=== PATIENT | female | born 1980 | race American Indian/Alaskan Native ===

== ENCOUNTER 2019-02-20 18:26 | Observation (INO) | payer OTHER ==
--- NOTE | 2019-02-20 18:45 | Emergency Department Report ---
Blank Doc - Documentation Documentation: pt presents to ED cc of left shoulder pain x 2 days, she states radiation to ne ck and sometimes to arm denies any trauma or injuries labs,cxr, ekg ACC eval
[2019-02-20 19:05] LABS: Basophils # (Auto) 0.1 K/mm3 (0.0-0.1); Basophils % (Auto) 0.8 % (0.0-1.8); Eosinophils # (Auto) 0.1 K/mm3 (0.0-0.4); Eosinophils % (Auto) 1.2 % (0.0-4.3); Hematocrit 34.6 % (30.3-42.9); Hemoglobin 11.3 gm/dl (10.1-14.3); Lymphocytes # (Auto) 2.9 K/mm3 (1.2-5.4); Lymphocytes % (Auto) 33.2 % (13.4-35.0); Mean Corpuscular HGB Conc 33 % (30-34); Mean Corpuscular Volume 78 fl (79-97); Monocytes # (Auto) 0.5 K/mm3 (0.0-0.8); Monocytes % (Auto) 5.8 % (0.0-7.3); Platelet Count 229 K/mm3 (140-440); Red Blood Count 4.45 M/mm3 (3.65-5.03); Red Cell Distribution Width 15.2 % (13.2-15.2)
[2019-02-20 19:24] LABS: BUN/Creatinine Ratio 10; Blood Urea Nitrogen 9 mg/dL (7-17); Calcium 8.9 mg/dL (8.4-10.2); Hemolysis Index 3
--- NOTE | 2019-02-20 19:25 | XRay Report ---
PROCEDURE: XR CHEST ROUTINE 2V TECHNIQUE: PA and lateral chest radiographs were obtained. HISTORY: Chest Pain COMPARISONS: None. FINDINGS: Heart: Normal. Mediastinum/Vessels: Normal. Lungs/Pleural space: Normal. Bony thorax: No acute osseous abnormality. IMPRESSION: No acute cardiopulmonary process seen.. This document is electronically signed by Isaura Kate MD., February 20 2019 07:23:45 PM ET
--- NOTE | 2019-02-20 21:02 | Emergency Department Report ---
HPI - General Chief Complaint: Chest Pain Time Seen by Provider: 02/20/19 18:41 - HPI HPI: Room 7 The patient is a 38-year-old female presenting with chief complaint chest pain. Patient states 2 nights ago she developed left upper extremity pain radiating to the back or neck which was intermittent. Today the patient states she developed intermittent dull left-sided chest pain. Patient denies shortness of breath, nausea/vomiting or diaphoresis with her pain. Patient currently gets her pain score of 6/10. Patient states she believes had a stress test about 2 years ago but states she's never had a cardiac catheterization Location: Chest, see above Duration: [See above] Quality: [See above] Severity: 10 Modifying factors: [see above] Context: [see above] Mode of transportation: [not driving] ED Past Medical Hx - Past Medical History Previous Medical History?: Yes Hx GERD: Yes Additional medical history: Hiatal hernia - Surgical History Past Surgical History?: No - Family History Family history: no significant - Social History Smoking Status: Never Smoker Substance Use Type: None (denies illicit drug use) ED Review of Systems ROS: Stated complaint: L SHOULDER PAIN Other details as noted in HPI Constitutional: denies: diaphoresis Eyes: denies: eye pain ENT: denies: throat pain Respiratory: no symptoms reported Cardiovascular: chest pain Endocrine: no symptoms reported Gastrointestinal: denies: nausea, vomiting Genitourinary: denies: dysuria Musculoskeletal: denies: back pain Neurological: denies: headache Physical Exam - Physical Exam Vital Signs: Vital Signs 02/20/19 18:42 Temperature 98 F Pulse Rate 81 Respiratory 18 Rate Blood Pressure 152/80 O2 Sat by Pulse 98 Oximetry Physical Exam: GENERAL: The patient is well-developed well-nourished female lying on stretcher not appearing to be in acute distress. [] HEENT: Normocephalic. Atraumatic. Extraocular motions are intact. Patient has moist mucous membranes. NECK: Supple. Trachea midline CHEST/LUNGS: Clear to auscultation. There is no respiratory distress noted. HEART/CARDIOVASCULAR: Regular. There is no tachycardia. There is no gallop rub or murmur. 2+ radial pulses bilaterally ABDOMEN: Abdomen is soft, nontender. Patient has normal bowel sounds. There is no abdominal distention. SKIN: There is no rash. There is no edema. There is no diaphoresis. NEURO: The patient is awake, alert, and oriented. The patient is cooperative. The patient has normal speech MUSCULOSKELETAL:There is no evidence of acute injury. ED Course Vital Signs 02/20/19 18:42 Temperature 98 F Pulse Rate 81 Respiratory 18 Rate Blood Pressure 152/80 O2 Sat by Pulse 98 Oximetry ED Medical Decision Making - Lab Data Result diagrams: 02/20/19 18:49 02/20/19 18:49 Laboratory Tests 02/20/19 02/20/19 02/20/19 18:49 18:49 21:16 WBC 8.6 RBC 4.45 Hgb 11.3 Hct 34.6 MCV 78 L MCH 25 L MCHC 33 RDW 15.2 Plt Count 229 Lymph % (Auto) 33.2 [place] % (Auto) 5.8 Eos % (Auto) 1.2 Baso % (Auto) 0.8 Lymph # 2.9 [place] # 0.5 Eos # 0.1 Baso # 0.1 Seg Neutrophils % 59.0 Seg Neutrophils # 5.1 D-Dimer 217.38 Sodium 140 Potassium 4.0 Chloride 101.8 Carbon Dioxide 28 Anion Gap 14 BUN 9 Creatinine 0.9 Estimated GFR > 60 BUN/Creatinine Ratio 10 Glucose 97 Calcium 8.9 Troponin T < 0.010 - EKG Data -: EKG Interpreted by Me EKG shows normal: sinus rhythm Rate: normal - EKG Data When compared to previous EKG there are: previous EKG unavailable Interpretation: nonspecific ST-T wave johanna (T-wave inversion in lead 3, flattened T waves in lead aVF) - Radiology Data Radiology results: report reviewed (chest x-ray), image reviewed (chest x-ray) interpreted by me: Chest x-ray-no focal infiltrates, no pneumothorax [facility] [address] [place] [address] XRay Report Signed Patient: GLORIA PEACE MR#: [id number] : 1980 Acct:[id number] Age/Sex: 38 / F ADM Date: 02/20/19 Loc: ED Attending Dr: Ordering Physician: ULYSSES SINGH Date of Service: 02/20/19 Procedure(s): XR chest routine 2V Accession Number(s): [id number] cc: ULYSSES SINGH Fluoro Time In Minutes: PROCEDURE: XR CHEST ROUTINE 2V TECHNIQUE: PA and lateral chest radiographs were obtained. HISTORY: Chest Pain COMPARISONS: None. FINDINGS: Heart: Normal. Mediastinum/Vessels: Normal. Lungs/Pleural space: N ormal. Bony thorax: No acute osseous abnormality. IMPRESSION: No acute cardiopulmonary process seen.. This document is electronically signed by Isaura Kate MD., February 20 2019 07:23:45 PM ET Transcribed By: [facility] Dictated By: ISAURA KATE MD Electronically Authenticated By: ISAURA KATE MD Signed Date/Time: 02/20/191924 DD/ 43 TD/TT: 02/20/190 - Differential Diagnosis ACS, PE, pericarditis Critical care attestation.: If time is entered above; I have spent that time in minutes in the direct care of this critically ill patient, excluding procedure time. ED Disposition Clinical Impression: Chest pain Disposition: DC-09 OP ADMIT IP TO THIS HOSP Is pt being admited?: Yes Does the pt Need Aspirin: Yes Condition: Fair Instructions: Chest Pain (ED) Referrals: RAJ LEZAMASEAGRAVES MD KATI [Primary Care Provider] - 3-5 Days Time of Disposition: 21:56 (hospitalist paged (Dr Reilly))
[2019-02-20] MEDS ORDERED: ASPIRIN PO ONE (21:03)
[2019-02-20] MEDS ORDERED: ZOFRAN IV PRN (22:39)
[2019-02-20] MEDS ORDERED: SODIUM CHLORIDE FLUSH SYRINGE 10 ML IV PRN (22:39)
[2019-02-20] MEDS ORDERED: TORADOL IV PRN (22:41)
[2019-02-20] MEDS ORDERED: APRESOLINE IV PRN (23:28)
[2019-02-20] MEDS ORDERED: LABETALOL 200 MG PO SCH (23:30)
--- NOTE | 2019-02-20 23:42 | History and Physical Report ---
History of Present Illness Date of examination: 02/20/19 Date of admission: 02/20/19 22:39 Chief complaint: Left shoulder pain History of present illness: Patient is a 38-year-old -[place] female with history of hypertension and GERD who presented to the ED on account of 2 days history of left shoulder pain. Patient stated that about 2 days ago, her daughter sneaked into her room and dropped something, which made her to jump out of bed suddenly. Thereafter she started experiencing left shoulder pain. Today, she she had 2 episodes of chest pressure on the left side of her chest. She denies chest pain, shortness of breath, diaphoresis, palpitation, cough, fever, chills, leg swelling, orthopnea or PND. No headaches, nausea, vomiting, lightheadedness, syncope or loss of consciousness Past History Past Medical History: GERD, hypertension, other (obesity, hiatal hernia) Past Surgical History: No surgical history Social history: no significant social history (she denies tobacco, alcohol or illicit drug use) Family history: other (significant for hypertension in the dad and diabetes mellitus in the grandmother) Medications and Allergies Allergies Allergy/AdvReac Type Severity Reaction Status Date / Time acetaminophen [From Lortab] Allergy Unknown Verified 02/20/19 18:31 amoxicillin Allergy Hives Verified 02/20/19 18:30 hydrocodone [From Lortab] Allergy Unknown Verified 02/20/19 18:31 prednisone Allergy Anaphylaxis Verified 02/20/19 18:30 Home Medications Medication Instructions Recorded Confirmed Last Taken Type Labetalol 200mg TAB 200 mg PO BID 02/20/19 02/20/19 02/20/19 History Active Meds: Active Medications Amlodipine Besylate (Norvasc) 5 mg PO QDAY EVITA Aspirin (Baby Aspirin) 81 mg PO QDAY EVITA Famotidine (Pepcid) 10 mg PO BID [facility] Hydralazine HCl (Apresoline) 10 mg IV Q4HR PRN PRN Reason: Blood Pressure Ketorolac Tromethamine (Toradol) 15 mg IV Q6H PRN PRN Reason: Pain, Moderate (4-6) Stop: 02/25/19 22:40 Labetalol HCl (Normodyne) 200 mg PO BID EVITA Ondansetron HCl (Zofran) 4 mg IV Q8H PRN PRN Reason: Nausea And Vomiting Sodium Chloride (Sodium Chloride Flush Syringe 10 Ml) 10 ml IV BID EVITA Sodium Chloride (Sodium Chloride Flush Syringe 10 Ml) 10 ml IV PRN PRN PRN Reason: LINE FLUSH Review of Systems All systems: negative (except as documented in the HPI, 14 point system reviewed were negative) Exam - Constitutional Vitals: Temp Pulse Resp BP Pulse Ox 98 F 67 19 169/96 100 02/20/19 18:42 02/20/19 22:00 02/20/19 22:00 02/20/19 22:00 02/20/19 22:00 General appearance: Present: no acute distress, obese - EENT Eyes: Present: PERRL, EOM intact ENT: hearing intact, clear oral mucosa - Neck Neck: Present: supple, normal ROM - Respiratory Respiratory effort: normal Respiratory: bilateral: CTA - Cardiovascular Rhythm: regular Heart Sounds: Present: S1 & S2 - Extremities Extremities: No edema Peripheral Pulses: within normal limits - Abdominal General gastrointestinal: Present: soft, non-tender, normal bowel sounds Female genitourinary: Present: deferred - Integumentary Integumentary: Present: clear, warm, dry - Musculoskeletal Musculoskeletal: strength equal bilaterally - Psychiatric Psychiatric: appropriate mood/affect, intact judgment & insight - Neurologic Neurologic: CNII-XII intact Results - Labs CBC & Chem 7: 02/20/19 18:49 02/20/19 18:49 Labs: Laboratory Last Values WBC 8.6 K/mm3 (4.5-11.0) 02/20/19 18:49 RBC 4.45 M/mm3 (3.65-5.03) 02/20/19 18:49 Hgb 11.3 gm/dl (10.1-14.3) 02/20/19 18:49 Hct 34.6 % (30.3-42.9) 02/20/19 18:49 MCV 78 fl (79-97) L 02/20/19 18:49 MCH 25 pg (28-32) L 02/20/19 18:49 MCHC 33 % (30-34) 02/20/19 18:49 RDW 15.2 % (13.2-15.2) 02/20/19 18:49 Plt Count 229 K/mm3 (140-440) 02/20/19 18:49 Lymph % (Auto) 33.2 % (13.4-35.0) 02/20/19 18:49 [place] % (Auto) 5.8 % (0.0-7.3) 02/20/19 18:49 Eos % (Auto) 1.2 % (0.0-4.3) 02/20/19 18:49 Baso % (Auto) 0.8 % (0.0-1.8) 02/20/19 18:49 Lymph # 2.9 K/mm3 (1.2-5.4) 02/20/19 18:49 [place] # 0.5 K/mm3 (0.0-0.8) 02/20/19 18:49 Eos # 0.1 K/mm3 (0.0-0.4) 02/20/19 18:49 Baso # 0.1 K/mm3 (0.0-0.1) 02/20/19 18:49 Seg Neutrophils % 59.0 % (40.0-70.0) 02/20/19 18:49 Seg Neutrophils # 5.1 K/mm3 (1.8-7.7) 02/20/19 18:49 217.38 ng/mlDDU (0-234) 02/20/19 21:16 Sodium 140 mmol/L (137-145) 02/20/19 18:49 Potassium 4.0 mmol/L (3.6-5.0) 02/20/19 18:49 Chloride 101.8 mmol/L (98-107) 02/20/19 18:49 Carbon Dioxide 28 mmol/L (22-30) 02/20/19 18:49 14 mmol/L 02/20/19 18:49 BUN 9 mg/dL (7-17) 02/20/19 18:49 0.9 mg/dL (0.7-1.2) 02/20/19 18:49 Estimated GFR > 60 ml/min 02/20/19 18:49 10 % 02/20/19 18:49 Glucose 97 mg/dL (65-100) 02/20/19 18:49 Calcium 8.9 mg/dL (8.4-10.2) 02/20/19 18:49 < 0.010 ng/mL (0.00-0.029) 02/20/19 22:47 Assessment and Plan Assessment and plan: Left shoulder pain -Left shoulder x-ray for further evaluation -On PRN analgesics for pain control Left-sided chest pressure -Serial troponin level monitoring -Further evaluation with stress test Hypertensive urgency -On antihypertensives, adjust as needed GERD -On famotidine Obesity with BMI of 38.1 -Lifestyle modification recommended DVT prophylaxis with SCD Disposition: Patient will be placed in observation status pending further evaluation and treatment Time spent: 35 minutes
[2019-02-21] MEDS: PEPCID PO SCH ×3 (00:01→21:50)
[2019-02-21] MEDS: NORMODYNE PO SCH ×3 (00:01→21:50)
[2019-02-21] MEDS: NORVASC PO SCH ×3 (00:01→12:28)
[2019-02-21] MEDS ORDERED: NITROSTAT SL PRN (01:47)
--- NOTE | 2019-02-21 01:51 | XRay Report ---
PROCEDURE: XR SHOULDER 2+V LT TECHNIQUE: Left shoulder radiographs, internal and external rotation, Y view views. HISTORY: LT shoulder pain COMPARISONS: None . FINDINGS: Fracture (s) and/or Dislocation(s): None . Joint space(s): Normal . Soft tissues: Normal . Bone mineralization: Normal . Foreign bodies: None . IMPRESSION: Normal Examination . This document is electronically signed by Deanna Sanchez DO., February 21 2019 01:49:17 AM ET
[2019-02-21 09:24] LABS: Chol/HDL Ratio 3.97 %
[2019-02-21] MEDS: BABY ASPIRIN PO SCH (12:27)
[2019-02-21] MEDS: IBUPROFEN PO PRN (12:27)
[2019-02-21] MEDS: SODIUM CHLORIDE FLUSH SYRINGE 10 ML IV SCH ×2 (12:28→21:50)
--- NOTE | 2019-02-21 13:21 | Consultation ---
History of Present Illness Consult date: 02/21/19 Consult reason: chest pain History of present illness: 38-year-old woman with history of hypertension on labetalol, no prior cardiac history. Cardiology consultation was requested for chest pain, but the patient presents with actual complaint of left shoulder and left arm pain. This pain began 3 days ago after she sustained an injury with a backward fall on her bed while at home. Since then, he has been pain with lifting the shoulder and other movements of the thorax. On my examination, there is reproducible pain on shoulder abduction, and palpation over the upper back. The patient has no chest pain, no shortness of breath, no symptoms of palpitation, lower extremity edema or syncope. EKG is in normal sinus rhythm, e ssentially normal ECG. Cardiac enzymes are normal. Past History Past Medical History: GERD, hypertension, other (obesity, hiatal hernia) Past Surgical History: No surgical history Social history: no significant social history (she denies tobacco, alcohol or illicit drug use) Family history: other (significant for hypertension in the dad and diabetes mellitus in the grandmother) Medications and Allergies Allergies Allergy/AdvReac Type Severity Reaction Status Date / Time acetaminophen [From Lortab] Allergy Unknown Verified 02/20/19 18:31 amoxicillin Allergy Hives Verified 02/20/19 18:30 hydrocodone [From Lortab] Allergy Unknown Verified 02/20/19 18:31 prednisone Allergy Anaphylaxis Verified 02/20/19 18:30 HYDRALAZINE Allergy Severe Dizziness Uncoded 02/21/19 00:20 NAPROSYN Allergy Severe CP FAST Uncoded 02/21/19 00:18 HEART RATE. Home Medications Medication Instructions Recorded Confirmed Last Taken Type Labetalol 200mg TAB 200 mg PO BID 02/20/19 02/20/19 02/20/19 History Active Meds: Active Medications Amlodipine Besylate (Norvasc) 5 mg PO QDAY [facility] Last Admin: 02/21/19 12:28 Dose: Not Given Documented by: Aspirin (Baby Aspirin) 81 mg PO QDAY [facility] Last Admin: 02/21/19 12:27 Dose: 81 mg Documented by: Famotidine (Pepcid) 10 mg PO BID [facility] Last Admin: 02/21/19 12:28 Dose: Not Given Documented by: Ibuprofen (Ibuprofen) 600 mg PO Q6H PRN PRN Reason: Pain, Mild (1-3) Last Admin: 02/21/19 12:27 Dose: 600 mg Documented by: Ketorolac Tromethamine (Toradol) 15 mg IV Q6H PRN PRN Reason: Pain, Moderate (4-6) Stop: 02/25/19 22:40 Labetalol HCl (Normodyne) 200 mg PO BID [facility] Last Admin: 02/21/19 12:27 Dose: 200 mg Documented by: Methylprednisolone (Medrol) 4 mg PO TID [facility] Nitroglycerin (Nitrostat) 0.4 mg SL .Q5MIN PRN PRN Reason: Chest Pain Ondansetron HCl (Zofran) 4 mg IV Q8H PRN PRN Reason: Nausea And Vomiting Sodium Chloride (Sodium Chloride Flush Syringe 10 Ml) 10 ml IV BID [facility] Last Admin: 02/21/19 12:28 Dose: 10 ml Documented by: Sodium Chloride (Sodium Chloride Flush Syringe 10 Ml) 10 ml IV PRN PRN PRN Reason: LINE FLUSH Review of Systems Cardiovascular: no chest pain, no orthopnea, no palpitations, no rapid/irregular heart beat, no edema, no syncope, no lightheadedness, no shortness of breath Musculoskeletal: neck pain, other (left arm pain) Physical Examination Vital Signs Temp Pulse Resp BP Pulse Ox 98 F 81 18 152/80 98 02/20/19 18:42 02/20/19 18:42 02/20/19 18:42 02/20/19 18:42 02/20/19 18:42 General appearance: no acute distress HEENT: Positive: PERRL Neck: Positive: neck supple Cardiac: Positive: Reg Rate and Rhythm Lungs: Positive: clear to auscultation Neuro: Positive: Grossly Intact Abdomen: Positive: Soft Female genitourinary: deferred Skin: Positive: Clear Extremities: Absent: edema Results 02/20/19 18:49 02/20/19 18:49 Lipids 02/21/19 Range/Units 07:12 Triglycerides 120 (2-149) mg/dL Cholesterol 187 (50-199) mg/dL HDL Cholesterol 47 (40-59) mg/dL Cholesterol/HDL Ratio 3.97 % CBC 02/20/19 Range/Units 18:49 WBC 8.6 (4.5-11.0) K/mm3 RBC 4.45 (3.65-5.03) M/mm3 Hgb 11.3 (10.1-14.3) gm/dl Hct 34.6 (30.3-42.9) % Plt Count 229 (140-440) K/mm3 Lymph # 2.9 (1.2-5.4) K/mm3 [place] # 0.5 (0.0-0.8) K/mm3 Eos # 0.1 (0.0-0.4) K/mm3 Baso # 0.1 (0.0-0.1) K/mm3 Comprehensive Metabolic Panel 02/20/19 Range/Units 18:49 Sodium 140 (137-145) mmol/L Potassium 4.0 (3.6-5.0) mmol/L Chloride 101.8 (98-107) mmol/L Carbon Dioxide 28 (22-30) mmol/L BUN 9 (7-17) mg/dL Creatinine 0.9 (0.7-1.2) mg/dL Glucose 97 (65-100) mg/dL Calcium 8.9 (8.4-10.2) mg/dL EKG interpretations - Telemetry EKG Rhythm: Sinus Rhythm Assessment and Plan - Patient Problems (1) Musculoskeletal pain of left upper extremity Current Visit: Yes Status: Acute Plan to address problem: Patient has musculoskeletal pain resulting from injury at home 3 days ago. ECGs and cardiac enzymes are normal. No further cardiac workup is indicated for musculoskeletal left arm and left shoulder pain. I will cancel further stress testing at this time. Recommend referral to orthopedic surgery for further evaluation of ongoing musculoskeletal pain.
[2019-02-21] MEDS: MEDROL PO SCH ×2 (15:00→21:49)
--- NOTE | 2019-02-21 21:19 | Progress Note ---
Assessment and Plan Assessment and plan: Left shoulder pain -Left shoulder x-ray for further evaluation -On PRN analgesics for pain control, added medrol, ortho consult Left-sided chest pressure -Serial troponin level monitoring -Further evaluation with stress test Hypertensive urgency -On antihypertensives, adjust as needed GERD -On famotidine Obesity with BMI of 38.1 -Lifestyle modification recommended DVT prophylaxis with SCD History Interval history: Continues to complain of left shoulder pain Review of systems Constitutional: No fevers, no malaise, no joint pains CVS: No chest pain, no orthopnea, no dyspnea on exertion, no pedal edema GI: No abdominal pain, no diarrhea, no vomiting, no constipation Respiratory: no wheezing, no coughing Hospitalist Physical - Physical exam Narrative exam: General.: Appears well, no distress, nontoxic HEENT: Moist mucous membranes, extraocular muscles intact, no lymphadenopathy Neck: supple Cardiac: S1-S2 heard Lungs: clear to auscultation bilaterally Abdomen: soft , nontender, nondistended, bowel sounds positive Extremities: no edema clubbing or cyanosis Tenderness to left shoulder, decreased range of motion Skin: no rash or lesions Neurologic: no gross focal deficits Psych: calm, and cooperative - Constitutional Vitals: Temp Pulse Resp BP Pulse Ox 98.2 F 86 18 147/81 100 02/21/19 19:32 02/21/19 20:08 02/21/19 19:32 02/21/19 19:32 02/21/19 19:32 General appearance: Present: no acute distress Results - Labs CBC & Chem 7: 02/20/19 18:49 02/20/19 18:49 Labs: Laboratory Last Values WBC 8.6 K/mm3 (4.5-11.0) 02/20/19 18:49 RBC 4.45 M/mm3 (3.65-5.03) 02/20/19 18:49 Hgb 11.3 gm/dl (10.1-14.3) 02/20/19 18:49 Hct 34.6 % (30.3-42.9) 02/20/19 18:49 MCV 78 fl (79-97) L 02/20/19 18:49 MCH 25 pg (28-32) L 02/20/19 18:49 MCHC 33 % (30-34) 02/20/19 18:49 RDW 15.2 % (13.2-15.2) 02/20/19 18:49 Plt Count 229 K/mm3 (140-440) 02/20/19 18:49 Lymph % (Auto) 33.2 % (13.4-35.0) 02/20/19 18:49 [place] % (Auto) 5.8 % (0.0-7.3) 02/20/19 18:49 Eos % (Auto) 1.2 % (0.0-4.3) 02/20/19 18:49 Baso % (Auto) 0.8 % (0.0-1.8) 02/20/19 18:49 Lymph # 2.9 K/mm3 (1.2-5.4) 02/20/19 18:49 [place] # 0.5 K/mm3 (0.0-0.8) 02/20/19 18:49 Eos # 0.1 K/mm3 (0.0-0.4) 02/20/19 18:49 Baso # 0.1 K/mm3 (0.0-0.1) 02/20/19 18:49 Seg Neutrophils % 59.0 % (40.0-70.0) 02/20/19 18:49 Seg Neutrophils # 5.1 K/mm3 (1.8-7.7) 02/20/19 18:49 217.38 ng/mlDDU (0-234) 02/20/19 21:16 Sodium 140 mmol/L (137-145) 02/20/19 18:49 Potassium 4.0 mmol/L (3.6-5.0) 02/20/19 18:49 Chloride 101.8 mmol/L (98-107) 02/20/19 18:49 Carbon Dioxide 28 mmol/L (22-30) 02/20/19 18:49 14 mmol/L 02/20/19 18:49 BUN 9 mg/dL (7-17) 02/20/19 18:49 0.9 mg/dL (0.7-1.2) 02/20/19 18:49 Estimated GFR > 60 ml/min 02/20/19 18:49 10 % 02/20/19 18:49 Glucose 97 mg/dL (65-100) 02/20/19 18:49 Calcium 8.9 mg/dL (8.4-10.2) 02/20/19 18:49 < 0.010 ng/mL (0.00-0.029) 02/21/19 00:35 Triglycerides 120 mg/dL (2-149) 02/21/19 07:12 Cholesterol 187 mg/dL (50-199) 02/21/19 07:12 124 mg/dL (50-130) 02/21/19 07:12 47 mg/dL (40-59) 02/21/19 07:12 3.97 % 02/21/19 07:12 Active Medications - Current Medications Current Medications: Generic Name Dose Route Start Last Admin Trade Name Freq PRN Reason Stop Dose Admin Amlodipine Besylate 5 mg 02/20/19 23:29 02/21/19 12:28 Norvasc PO Not Given QDAY [facility] Aspirin 81 mg 02/21/19 10:00 02/21/19 12:27 Baby Aspirin PO 81 mg QDAY [facility]ITA Administration Famotidine 10 mg 02/20/19 23:00 02/21/19 12:28 Pepcid PO Not Given BID [facility] Ibuprofen 600 mg 02/21/19 11:41 02/21/19 12:27 Ibuprofen PO 600 mg Q6H PRN Administration Pain, Mild (1-3) Ketorolac Tromethamine 15 mg 02/20/19 22:41 Toradol IV 02/25/19 22:40 Q6H PRN Pain, Moderate (4-6) Labetalol HCl 200 mg 02/20/19 23:30 02/21/19 12:27 Normodyne PO 200 mg BID [facility]ITA Administration Methylprednisolone 4 mg 02/21/19 14:00 02/21/19 15:00 Medrol PO Not Given TID [facility] Nitroglycerin 0.4 mg 02/21/19 01:47 Nitrostat SL .Q5MIN PRN Chest Pain Ondansetron HCl 4 mg 02/20/19 22:39 Zofran IV Q8H PRN Nausea And Vomiting Sodium Chloride 10 ml 02/21/19 10:00 02/21/19 12:28 Sodium Chloride Flush Syringe 10 Ml IV 10 ml BID [facility] Administration Sodium Chloride 10 ml 02/20/19 22:39 Sodium Chloride Flush Syringe 10 Ml IV PRN PRN LINE FLUSH Nutrition/Malnutrition Assess - Dietary Evaluation Nutrition/Malnutrition Findings: Nutrition Notes Start: 02/21/19 16:04 Freq: Status: Active Protocol: Document 02/21/19 16:04 RM (Rec: 02/21/19 16:08 RM [id number]) Nutrition Notes Need for 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 Pt stated that [employer] her appetite was good and that she ate 3 meals daily. Stated that her appetite is good now. Stated that she has only had breakfast so far and only ate the toast because she did not like the eggs. Admits to recent wt gain. No temporal or orbital wasting . Burn Absent Trauma Absent Nutrition Intervention Follow-Up By: 02/24/19 Additional Comments Follow for stable intakes
[2019-02-22] MEDS: IBUPROFEN PO PRN ×2 (03:00→12:52)
[2019-02-22] MEDS: BABY ASPIRIN PO SCH (10:39)
[2019-02-22] MEDS: NORMODYNE PO SCH ×2 (10:39→21:24)
--- NOTE | 2019-02-22 12:40 | Progress Note ---
Assessment and Plan Left shoulder and left arm pain: chief complaint s/t fall Hypertension No further cardiac recommendations. We will follow intermittently. Subjective Date of service: 02/22/19 Interval history: Patient still with left shoulder pain. Objective Vital Signs Temp Pulse Resp BP Pulse Ox 02/22/19 07:35 97.8 F 18 127/76 02/22/19 04:27 98.5 F 73 18 141/64 99 02/22/19 03:00 18 02/21/19 23:35 98.4 F 81 18 149/75 99 02/21/19 20:08 86 02/21/19 19:32 98.2 F 86 18 147/81 100 02/21/19 15:42 98.0 F 81 18 130/107 98 - Physical Examination General: No Apparent Distress HEENT: Positive: PERRL Neck: Positive: neck supple Cardiac: Positive: Reg Rate and Rhythm Lungs: Positive: Decreased Breath Sounds Neuro: Positive: Grossly Intact Abdomen: Positive: Soft Extremities: Absent: edema
--- NOTE | 2019-02-22 12:58 | Consultation ---
History of Present Illness - [facility] Consult date: 02/22/19 Consult reason: joint pain History of present illness: 38-year-old female who complains of left shoulder pain for the past several weeks patient states problem began after she was startled by her daughter at home patient denies any history of fall or other trauma. Currently patient describes the pain as beginning in the neck area and radiating down the left shoulder into the left forearm and hand region. States the pain sometimes has numbness and tingling sensation about the time as a sharp stabbing pain located along the lateral border of the upper arm. Incidentally patient states she is allergic to prednisone and other medications Past History Past Medical History: GERD, hypertension, other (obesity, hiatal hernia) Past Surgical History: No surgical history Social history: no significant social history (she denies tobacco, alcohol or illicit drug use) Family history: other (significant for hypertension in the dad and diabetes mellitus in the grandmother) Medications and Allergies Allergies Allergy/AdvReac Type Severity Reaction Status Date / Time acetaminophen [From Lortab] Allergy Unknown Verified 02/20/19 18:31 amoxicillin Allergy Hives Verified 02/20/19 18:30 hydrocodone [From Lortab] Allergy Unknown Verified 02/20/19 18:31 prednisone Allergy Anaphylaxis Verified 02/20/19 18:30 HYDRALAZINE Allergy Severe Dizziness Uncoded 02/21/19 00:20 NAPROSYN Allergy Severe CP FAST Uncoded 02/21/19 00:18 HEART RATE. Home Medications Medication Instructions Recorded Confirmed Last Taken Type Labetalol 200mg TAB 200 mg PO BID 02/20/19 02/20/19 02/20/19 History Active Meds: Active Medications Amlodipine Besylate (Norvasc) 5 mg PO QDAY [facility] Last Admin: 02/21/19 12:28 Dose: Not Given Documented by: Aspirin (Baby Aspirin) 81 mg PO QDAY [facility] Last Admin: 02/22/19 10:39 Dose: 81 mg Documented by: Famotidine (Pepcid) 10 mg PO BID [facility] Last Admin: 02/21/19 21:50 Dose: 10 mg Documented by: Ibuprofen (Ibuprofen) 600 mg PO Q6H PRN PRN Reason: Pain, Mild (1-3) Last Admin: 02/22/19 12:52 Dose: 600 mg Documented by: Ketorolac Tromethamine (Toradol) 15 mg IV Q6H PRN PRN Reason: Pain, Moderate (4-6) Stop: 02/25/19 22:40 Labetalol HCl (Normodyne) 200 mg PO BID [facility] Last Admin: 02/22/19 10:39 Dose: 200 mg Documented by: Methylprednisolone (Medrol) 4 mg PO TID [facility] Last Admin: 02/21/19 21:49 Dose: Not Given Documented by: Nitroglycerin (Nitrostat) 0.4 mg SL .Q5MIN PRN PRN Reason: Chest Pain Ondansetron HCl (Zofran) 4 mg IV Q8H PRN PRN Reason: Nausea And Vomiting Sodium Chloride (Sodium Chloride Flush Syringe 10 Ml) 10 ml IV BID [facility] Last Admin: 02/21/19 21:50 Dose: 10 ml Documented by: Sodium Chloride (Sodium Chloride Flush Syringe 10 Ml) 10 ml IV PRN PRN PRN Reason: LINE FLUSH Physical Examination - Physical exam Narrative exam: At the left shoulder patient is tender at the greater tuberosity as well as the trapezius muscle posteriorly patient does have some guarding tendencies which limits effective examination at this time Eyes: PERRL ENT: Positive: clear oral mucosa Respiratory effort: normal Respiratory: bilateral: CTA Rhythm: regular Heart Sounds: Positive: S1 & S2 General gastrointestinal: Positive: soft, non-tender, non-distended, normal bowel sounds Integumentary: clear, warm, dry Neurologic: Positive: CNII-XII intact, moves all extremities, gait normal. Negative: focal deficits - Cervical Spine Neck pain: none Tenderness with palpation: none Full ROM: yes ROM: flexion: normal ROM: extension: normal ROM: rotation right: normal ROM: rotation left: normal ROM: lateral flexion right: normal ROM: lateral flexion left: normal - Lumbar Spine Back pain: none Tenderness with palpation: none Appearance: normal Full ROM: yes ROM: flexion: normal ROM: extension: normal ROM: rotation right: normal ROM: rotation left: normal ROM: lateral flexion right: normal ROM: lateral flexion left: normal Assessment and Plan Left shoulder pain suspect tendinitis or bursitis Discussed treatment options with the patient recommend Depo-Medrol injection however patient previous allergy to prednisone negate this form of treatment therefore patient was encouraged to take oral anti-inflammatory medications along with physical therapy and arm sling
--- NOTE | 2019-02-22 17:32 | Discharge Summary ---
Providers - Providers Date of Admission: 02/20/19 22:39 Attending physician: SARAH THOMPSON MD 02/21/19 10:43 Consult to Cardiology [CONS] Routine Consulting Provider: MADISON CORONEL Reason For Exam: chest pain 02/21/19 21:19 Consult to Physician [CONS] Routine Comment: Consulting Provider: BARBARA SCHULTZ Physician Instructions: Reason For Exam: left shoulder pain Hospitalization Condition: Fair Hospital course: Left shoulder pain No acute findings on x-ray, orthopedic surgery consult appreciated, outpatient orthopedic surgery follow-up, NSAIDs and pain medications Left-sided chest pressure Musculoskeletal in origin, due to left shoulder pain, no further workup indicated per cardiology Hypertensive urgency Blood pressure meds optimized GERD -On famotidine Obesity with BMI of 38.1 -Lifestyle modification recommended DVT prophylaxis with SCD Disposition: TO HOME OR SELFCARE Time spent for discharge: 33 mins Core Measure Documentation - Palliative Care Palliative Care/ Comfort Measures: Not Applicable - Core Measures Any of the following diagnoses?: none Exam - Constitutional Vitals: Temp Pulse Resp BP Pulse Ox 97.8 F 73 18 127/76 100 02/22/19 07:35 02/22/19 04:27 02/22/19 07:35 02/22/19 07:35 02/22/19 10:00 General appearance: Present: no acute distress, well-nourished - EENT Eyes: Present: PERRL ENT: hearing intact, clear oral mucosa - Neck Neck: Present: supple, normal ROM - Respiratory Respiratory effort: normal Respiratory: bilateral: CTA - Cardiovascular Heart Sounds: Present: S1 & S2. Absent: rub, click - Extremities Extremities: pulses symmetrical, No edema Peripheral Pulses: within normal limits - Abdominal General gastrointestinal: Present: soft, non-tender, non-distended, normal bowel sounds Female genitourinary: Present: normal - Integumentary Integumentary: Present: clear, warm, dry - Musculoskeletal Musculoskeletal: gait normal, strength equal bilaterally - Psychiatric Psychiatric: appropriate mood/affect, intact judgment & insight - Neurologic Neurologic: CNII-XII intact, moves all extremities Plan Follow up with: KARRIE BLAKE MD [Referring] - 3-5 Days Prescriptions: Meloxicam [Mobic] 7.5 mg PO QDAY #30 tablet amLODIPine [Norvasc] 5 mg PO QDAY #30 tablet Acetaminophen/Codeine [Tylenol /Codeine # 3 tab] 1 tab PO Q6H PRN #20 tablet PRN Reason: Pain, Moderate (4-6)
[2019-02-22] MEDS ORDERED: TYLENOL #3 PO PRN (18:28)
[2019-02-22] MEDS: MOBIC PO SCH (21:03)
[2019-02-22] MEDS: PEPCID PO SCH (21:24)
[2019-02-23] MEDS: SODIUM CHLORIDE FLUSH SYRINGE 10 ML IV SCH ×3 (04:33→09:47)
[2019-02-23] MEDS: PEPCID PO SCH ×2 (04:34→09:43)
[2019-02-23] MEDS: IBUPROFEN PO PRN (09:43)
[2019-02-23] MEDS: BABY ASPIRIN PO SCH (09:44)
[2019-02-23] MEDS: NORMODYNE PO SCH (09:44)
[2019-02-23] MEDS: NORVASC PO SCH (09:46)
[2019-02-23] MEDS: MOBIC PO SCH (09:46)
--- NOTE | 2019-02-23 12:03 | Progress Note ---
Assessment and Plan Assessment and plan: 38f who pw shoulder pain Left shoulder pain -Left shoulder x-ray for further evaluation -On PRN analgesics for pain control, nsaids, ortho consult appreciated Left-sided chest pressure pain due to shoulder pain, stress test cancelled by cardiology, not indicated Hypertensive urgency -On antihypertensives, adjust as needed GERD -On famotidine Obesity with BMI of 38.1 -Lifestyle modification recommended DVT prophylaxis with SCD History Interval history: Continues to complain of left shoulder pain Review of systems Constitutional: No fevers, no malaise, no joint pains CVS: No chest pain, no orthopnea, no dyspnea on exertion, no pedal edema GI: No abdominal pain, no diarrhea, no vomiting, no constipation Respiratory: no wheezing, no coughing Hospitalist Physical - Physical exam Narrative exam: General.: Appears well, no distress, nontoxic HEENT: Moist mucous membranes, extraocular muscles intact, no lymphadenopathy Neck: supple Cardiac: S1-S2 heard Lungs: clear to auscultation bilaterally Abdomen: soft , nontender, nondistended, bowel sounds positive Extremities: no edema clubbing or cyanosis Tenderness to left shoulder, decreased range of motion Skin: no rash or lesions Neurologic: no gross focal deficits Psych: calm, and cooperative - Constitutional Vitals: Temp Pulse Resp BP Pulse Ox 98.1 F 73 18 143/84 95 02/23/19 07:24 02/23/19 03:46 02/23/19 07:24 02/23/19 07:24 02/23/19 03:46 General appearance: Present: no acute distress, well-nourished Results - Labs CBC & Chem 7: 02/20/19 18:49 02/20/19 18:49 Labs: Laboratory Last Values WBC 8.6 K/mm3 (4.5-11.0) 02/20/19 18:49 RBC 4.45 M/mm3 (3.65-5.03) 02/20/19 18:49 Hgb 11.3 gm/dl (10.1-14.3) 02/20/19 18:49 Hct 34.6 % (30.3-42.9) 02/20/19 18:49 MCV 78 fl (79-97) L 02/20/19 18:49 MCH 25 pg (28-32) L 02/20/19 18:49 MCHC 33 % (30-34) 02/20/19 18:49 RDW 15.2 % (13.2-15.2) 02/20/19 18:49 Plt Count 229 K/mm3 (140-440) 02/20/19 18:49 Lymph % (Auto) 33.2 % (13.4-35.0) 02/20/19 18:49 Toombs % (Auto) 5.8 % (0.0-7.3) 02/20/19 18:49 Eos % (Auto) 1.2 % (0.0-4.3) 02/20/19 18:49 Baso % (Auto) 0.8 % (0.0-1.8) 02/20/19 18:49 Lymph # 2.9 K/mm3 (1.2-5.4) 02/20/19 18:49 Toombs # 0.5 K/mm3 (0.0-0.8) 02/20/19 18:49 Eos # 0.1 K/mm3 (0.0-0.4) 02/20/19 18:49 Baso # 0.1 K/mm3 (0.0-0.1) 02/20/19 18:49 Seg Neutrophils % 59.0 % (40.0-70.0) 02/20/19 18:49 Seg Neutrophils # 5.1 K/mm3 (1.8-7.7) 02/20/19 18:49 217.38 ng/mlDDU (0-234) 02/20/19 21:16 Sodium 140 mmol/L (137-145) 02/20/19 18:49 Potassium 4.0 mmol/L (3.6-5.0) 02/20/19 18:49 Chloride 101.8 mmol/L (98-107) 02/20/19 18:49 Carbon Dioxide 28 mmol/L (22-30) 02/20/19 18:49 14 mmol/L 02/20/19 18:49 BUN 9 mg/dL (7-17) 02/20/19 18:49 0.9 mg/dL (0.7-1.2) 02/20/19 18:49 Estimated GFR > 60 ml/min 02/20/19 18:49 10 % 02/20/19 18:49 Glucose 97 mg/dL (65-100) 02/20/19 18:49 Calcium 8.9 mg/dL (8.4-10.2) 02/20/19 18:49 < 0.010 ng/mL (0.00-0.029) 02/21/19 00:35 Triglycerides 120 mg/dL (2-149) 02/21/19 07:12 Cholesterol 187 mg/dL (50-199) 02/21/19 07:12 124 mg/dL (50-130) 02/21/19 07:12 47 mg/dL (40-59) 02/21/19 07:12 3.97 % 02/21/19 07:12 Active Medications - Current Medications Current Medications: Generic Name Dose Route Start Last Admin Trade Name Freq PRN Reason Stop Dose Admin Acetaminophen/Codeine Phosphate 1 tab 02/22/19 18:28 02/22/19 21:24 Tylenol #3 PO 1 tab Q6H PRN Administration Pain, Moderate (4-6) Amlodipine Besylate 5 mg 02/20/19 23:29 02/23/19 09:46 Norvasc PO Not Given QDAY [facility] Aspirin 81 mg 02/21/19 10:00 02/23/19 09:44 Baby Aspirin PO 81 mg QDAY [facility] Administration Famotidine 10 mg 02/20/19 23:00 02/23/19 09:43 Pepcid PO 10 mg BID [facility] Administration Ibuprofen 600 mg 02/21/19 11:41 02/23/19 09:43 Ibuprofen PO 600 mg Q6H PRN Administration Pain, Mild (1-3) Ketorolac Tromethamine 15 mg 02/20/19 22:41 Toradol IV 02/25/19 22:40 Q6H PRN Pain, Moderate (4-6) Labetalol HCl 200 mg 02/20/19 23:30 02/23/19 09:44 Normodyne PO 200 mg BID [facility] Administration Meloxicam 7.5 mg 02/22/19 19:00 02/23/19 09:46 Mobic PO Not Given QDAY [facility] Nitroglycerin 0.4 mg 02/21/19 01:47 Nitrostat SL .Q5MIN PRN Chest Pain Ondansetron HCl 4 mg 02/20/19 22:39 Zofran IV Q8H PRN Nausea And Vomiting Sodium Chloride 10 ml 02/21/19 10:00 02/23/19 09:47 Sodium Chloride Flush Syringe 10 Ml IV 10 ml BID [facility] Administration Sodium Chloride 10 ml 02/20/19 22:39 Sodium Chloride Flush Syringe 10 Ml IV PRN PRN LINE FLUSH Nutrition/Malnutrition Assess - Dietary Evaluation Nutrition/Malnutrition Findings: Nutrition Notes Start: 02/21/19 16:04 Freq: Status: Active Protocol: Document 02/21/19 16:04 RM (Rec: 02/21/19 16:08 RM [id number]) Nutrition 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 Stated that her appetite is good now. Stated that she has only had breakfast so far and only ate the toast because she did not like the eggs. Admits to recent wt gain. No temporal or orbital wasting . Burn Absent Trauma Absent Nutrition Intervention Follow-Up By: 02/24/19 Additional Comments Follow for stable intakes
[2019-02-23 12:35] VITALS: BP 142/86
--- NOTE | 2019-02-23 14:46 | XRay Report ---
CERVICAL SPINE, 5 views: History: Left-sided neck and arm pain. There is straightening of the normal cervical lordosis. Mild disc space narrowing and marginal spurring is identified at C5-6 and C6-7. The remaining levels are within normal limits. The facet joints are in appropriate relationship. The oblique images suggest mild narrowing of the left C6-7 bony neural foramen. The remaining foramina appear widely patent. IMPRESSION: Mild degenerative disc disease at C5-6 and C6-7. Question left neural foraminal narrowing at C6-7.
== END 2019-02-23 17:22 | disposition home or self-care (01) ==
LOC: ED 18:26 → 4A 22:39 → INTOOBSV 22:39
PROVIDERS: ADMIT Internal Medicine; ATTEND Internal Medicine
DX: M25.512 Pain in left shoulder (principal); R07.89 Other chest pain; I16.0 Hypertensive urgency; K21.9 Gastro-esophageal reflux disease without esophagitis; E11.9 Type 2 diabetes mellitus without complications; I10 Essential (primary) hypertension; Z68.38 Body mass index [BMI] 38.0-38.9, adult; Z88.1 Allergy status to other antibiotic agents; Z88.5 Allergy status to narcotic agent; Z79.899 Other long term (current) drug therapy
CPT/HCPCS: 36415; 71046; 72050; 73030; 80048; 80061; 84484; 85025; 85379; 93005; 93010; 99284; G0378; J1885; J7509

== ENCOUNTER 2019-06-30 01:20 | Emergency (ER) | payer OTHER ==
[2019-06-30] MEDS ORDERED: CATAPRES PO ONE (07:19)
--- NOTE | 2019-06-30 07:26 | Emergency Department Report ---
ED General Adult HPI - General Chief complaint: High BP Stated complaint: POSS HIGH BP Time Seen by Provider: 06/30/19 07:09 Source: patient, EMS Mode of arrival: Ambulatory Limitations: No Limitations - History of Present Illness Initial comments: Patient is 38 years old female with history of hypertension. Patient presented to the ER stating that she is having trouble controlling her blood pressure. Patient current blood pressure is 184/99. Patient denied any headache, weakness numbness or tingling sensation. Patient denied chest pain or shortness of breath. Patient is taking labetalol 200 mg twice a day and amlodipine 10 mg daily. Severity scale (0 -10): 0 - Related Data Home Medications Medication Instructions Recorded Confirmed Last Taken Labetalol 200mg TAB 200 mg PO BID 02/20/19 02/20/19 02/20/19 Previous Rx's Medication Instructions Recorded Last Taken Type amLODIPine [Norvasc] 5 mg PO QDAY #30 tablet 02/22/19 Unknown Rx Acetaminophen/Codeine [Tylenol 1 tab PO Q6H PRN #20 tablet 02/23/19 Unknown Rx /Codeine # 3 tab] Meloxicam [Mobic] 7.5 mg PO QDAY #30 tablet 02/23/19 Unknown Rx Allergies Allergy/AdvReac Type Severity Reaction Status Date / Time acetaminophen [From Lortab] Allergy Unknown Verified 02/20/19 18:31 amoxicillin Allergy Hives Verified 02/20/19 18:30 hydrocodone [From Lortab] Allergy Unknown Verified 02/20/19 18:31 methyldopa Allergy Unknown Verified 06/30/19 01:32 prednisone Allergy Anaphylaxis Verified 02/20/19 18:30 HYDRALAZINE Allergy Severe Dizziness Uncoded 02/21/19 00:20 NAPROSYN Allergy Severe CP FAST Uncoded 02/21/19 00:18 HEART RATE. ED Review of Systems ROS: Stated complaint: POSS HIGH BP Other details as noted in HPI Comment: All other systems reviewed and negative Constitutional: denies: chills, fever Respiratory: denies: cough, shortness of breath, SOB with exertion, wheezing Cardiovascular: denies: chest pain, palpitations Gastrointestinal: denies: abdominal pain, nausea, vomiting, diarrhea, constipation, hematemesis, melena, hematochezia Neurological: denies: headache, weakness, numbness, paresthesias, confusion, abnormal gait ED Past Medical Hx - Past Medical History Previous Medical History?: Yes Hx Hypertension: Yes (Pt does have HTN) Hx Congestive Heart Failure: No Hx Diabetes: No Hx GERD: Yes Hx Asthma: No Hx COPD: No Hx HIV: (Pt does not have HIV) Additional medical history: Hiatal hernia - Surgical History Past Surgical History?: No - Social History Smoking Status: Never Smoker Substance Use Type: None - Medications Home Medications: Home Medications Medication Instructions Recorded Confirmed Last Taken Type Labetalol 200mg TAB 200 mg PO BID 02/20/19 02/20/19 02/20/19 History amLODIPine [Norvasc] 5 mg PO QDAY #30 tablet 02/22/19 Unknown Rx Acetaminophen/Codeine [Tylenol 1 tab PO Q6H PRN #20 tablet 02/23/19 Unknown Rx /Codeine # 3 tab] Meloxicam [Mobic] 7.5 mg PO QDAY #30 tablet 02/23/19 Unknown Rx ED Physical Exam - General Limitations: No Limitations General appearance: alert, in no apparent distress - Head Head exam: Present: atraumatic, normocephalic, normal inspection - Eye Eye exam: Present: normal appearance - ENT ENT exam: Present: normal exam, normal orophraynx, mucous membranes moist - Neck Neck exam: Present: normal inspection, full ROM. Absent: tenderness, meningismus, lymphadenopathy, thyromegaly - Respiratory Respiratory exam: Present: normal lung sounds bilaterally - Cardiovascular Cardiovascular Exam: Present: regular rate, normal rhythm, normal heart sounds - GI/Abdominal GI/Abdominal exam: Present: soft, normal bowel sounds. Absent: distended, tenderness, guarding, rebound, rigid, organomegaly, mass, bruit, pulsatile mass, hernia - Extremities Exam Extremities exam: Present: normal inspection, full ROM, normal capillary refill. Absent: tenderness, pedal edema, joint swelling, calf tenderness - Back Exam Back exam: Present: normal inspection, full ROM. Absent: CVA tenderness (R), CVA tenderness (L), muscle spasm, paraspinal tenderness, vertebral tenderness - Neurological Exam Neurological exam: Present: alert, oriented X3, CN II-XII intact, normal gait, reflexes normal - Psychiatric Psychiatric exam: Present: normal mood - Skin Skin exam: Present: warm, intact, normal color ED Course Vital Signs 06/30/19 06/30/19 06/30/19 01:27 05:38 06:07 Temperature 97.7 F 98.1 F Pulse Rate 79 77 Respiratory 18 18 Rate Blood Pressure 184/99 157/134 Blood Pressure 165/95 [Right] O2 Sat by Pulse 98 100 Oximetry 06/30/19 06/30/19 06/30/19 06:15 06:30 06:46 Temperature Pulse Rate Respiratory Rate Blood Pressure 179/108 179/108 175/102 Blood Pressure [Right] O2 Sat by Pulse 100 100 100 Oximetry 06/30/19 06/30/19 06/30/19 06:58 07:00 07:15 Temperature Pulse Rate 62 80 Respiratory 62 H 16 Rate Blood Pressure 168/99 171/110 Blood Pressure 168/99 171/110 [Right] O2 Sat by Pulse 99 100 99 Oximetry 06/30/19 06/30/19 06/30/19 07:30 07:35 07:46 Temperature Pulse Rate 80 Respiratory 16 Rate Blood Pressure 168/101 171/110 171/110 Blood Pressure [Right] O2 Sat by Pulse 100 99 100 Oximetry 06/30/19 06/30/19 06/30/19 08:00 08:15 08:30 Temperature Pulse Rate Respiratory Rate Blood Pressure 166/94 172/100 178/106 Blood Pressure [Right] O2 Sat by Pulse 100 99 99 Oximetry 06/30/19 08:45 Temperature Pulse Rate Respiratory Rate Blood Pressure 144/86 Blood Pressure [Right] O2 Sat by Pulse 99 Oximetry ED Medical Decision Making - Lab Data Result diagrams: 06/30/19 07:47 06/30/19 07:47 - Medical Decision Making Patient is 38 years old female with history of hypertension. Patient presented to the ER stating that she is having trouble controlling her blood pressure. Patient current blood pressure is 184/99. Patient denied any headache, weakness numbness or tingling sensation. Patient denied chest pain or shortness of breath. Patient is taking labetalol 200 mg twice a day and amlodipine 10 mg daily. Patient labs reviewed and is unremarkable. Blood pressure is 146/62. Patient still denying any symptoms. Patient given hydrochlorothiazide by prescription and advised to follow-up with her primary care physician in the next 2-3 days and to return to the ER if symptoms are not improved Critical care attestation.: If time is entered above; I have spent that time in minutes in the direct care of this critically ill patient, excluding procedure time. ED Disposition Clinical Impression: Malignant hypertension Disposition: DC-01 TO HOME OR SELFCARE Is pt being admited?: No Condition: Stable Instructions: Hypertension (ED) Referrals: PRIMARY CARE, [Primary Care Provider] - 3-5 Days
[2019-06-30 08:01] LABS: Basophils # (Auto) 0.1 K/mm3 (0.0-0.1); Basophils % (Auto) 0.6 % (0.0-1.8); Eosinophils # (Auto) 0.1 K/mm3 (0.0-0.4); Eosinophils % (Auto) 1.3 % (0.0-4.3); Hematocrit 35.3 % (30.3-42.9); Hemoglobin 11.3 gm/dl (10.1-14.3); Lymphocytes % (Auto) 32.7 % (13.4-35.0); Mean Corpuscular HGB Conc 32 % (30-34); Mean Corpuscular Volume 78 fl (79-97); Monocytes # (Auto) 0.6 K/mm3 (0.0-0.8); Platelet Count 237 K/mm3 (140-440); Red Blood Count 4.55 M/mm3 (3.65-5.03); Red Cell Distribution Width 15.3 % (13.2-15.2)
[2019-06-30 08:33] LABS: Alanine Aminotransferase 9 units/L (7-56); Albumin 4.2 g/dL (3.9-5); BUN/Creatinine Ratio 12; Blood Urea Nitrogen 11 mg/dL (7-17); Calcium 9.1 mg/dL (8.4-10.2); Hemolysis Index 2
[2019-06-30 11:00] VITALS: BP 160/97
== END 2019-06-30 10:15 | disposition home or self-care (01) ==
LOC: ED 01:20
DX: I10 Essential (primary) hypertension (principal); K21.9 Gastro-esophageal reflux disease without esophagitis; Z79.899 Other long term (current) drug therapy; Z88.8 Allergy status to other drugs, medicaments and biological substances; Z88.5 Allergy status to narcotic agent
CPT/HCPCS: 36415; 80053; 83880; 85025